=== PATIENT | female | born 2000 | race Caucasian/White ===

== ENCOUNTER 2023-01-22 15:35 | Emergency (ER) | payer MEDICAID ==
[~2023-01-22] VITALS: Ht 149.9 cm; Wt 49.0 kg
[2023-01-22 15:40] VITALS: BP 126/70
== END 2023-01-22 17:56 | disposition left against medical advice (07) ==
LOC: ER 15:35
DX: R07.89 Other chest pain (principal); Z53.21 Procedure and treatment not carried out due to patient leaving prior to being seen by health care provider
CPT/HCPCS: 93005; 99281